=== PATIENT | female | born 1990 | race Hispanic/Latino ===

== ENCOUNTER 2017-07-08 17:33 | Emergency (ER) | payer OTHER, SELFPAY ==
[2017-07-08 18:56] LABS: Bilirubin Negative (Negative); Blood, Urine Trace (Negative); Clarity CLEAR (Clear); Glucose, Urine (Dipstick) Negative (Negative); Leukocyte Negative (Negative); Nitrite Negative (Negative); Pregnancy Test - Urine (BHCG) POSITIVE (Negative); Pregu Control Background? CLEAR/WHITE (CLR/WHITE); Pregu Control Bar Appear? YES (CONTROL BAR); Protein, Urine (Dipstick) Negative (Neg-Trace); Specific Gravity 1.033 (1.002-1.036); Specific Gravity, Urine 1.033 (1.002-1.036); Urobilinogen 0.2 mg/dL (0.2-1.0)
[2017-07-08 18:58] LABS: Bacteria/HPF None Seen HPF (None Seen); Hyaline Casts/LPF 0-3 HYALINE CAST LPF (0-3 Hyaline); Pathc Cast-AUWi Flag 0.29 (0-2.49); RBC/HPF 0-3 HPF (0-3); Squamous Epithelial 0-3 HPF (0-3); WBC/HPF 0-3 HPF (0-3)
[2017-07-08 19:46] LABS: #Basophils 0.1 thou/uL (0.0-0.2); #Eosinphils 0.1 thou/uL (0.0-0.7); #Lymphocytes 2.6 thou/uL (1.20-3.40); #Monocytes 0.6 thou/uL (0.11-0.59); #Neutrophils 6.7 thou/uL (1.40-6.50); %Basophils 0.5 % (0.0-1.0); %Eosinophils 0.9 % (0.0-10.0); %Lymphocytes 25.6 % (21.0-51.0); Hemoglobin 13.1 g/dL (12.0-16.0); Mean Corpuscular HGB CONC 35.3 g/dL (32.0-36.0); Mean Corpuscular Hemoglobin 31.6 pg (27.0-31.0); Mean Corpuscular Volume 89.6 fl (81.0-99.0); Mean Platelet Volume 7.5 fL (7.4-10.4); Platelet Count 264 thou/uL (130-400); RBC Distribution Width 11.7 % (11.5-14.5); Red Blood Cell (RBC) Count 4.15 mill/uL (4.20-5.40)
[2017-07-08 20:07] LABS: ALT (SGPT) 20 U/L (8-55); AST (SGOT) 15 U/L (5-34); Albumin 3.9 g/dL (3.5-5.0); Alkaline Phosphatase 62 U/L (40-150); Anion Gap 10 mmol/L (10-20); BUN (Urea Nitrogen) 11 mg/dL (7.0-18.7); Bilirubin, Total Less than 0.2 mg/dL (0.2-1.2); Calc. Creatinine Clearance 0 mL/min (70-130); Calcium 9.4 mg/dL (7.8-10.44); Carbon Dioxide 22 mmol/L (22-29); Chloride 106 mmol/L (98-107); Estimated GFR-MDRD Greater than 90; Globulin 3.7 g/dL (2.4-3.5); Glucose 107 mg/dL (70-105); Potassium 3.6 mmol/L (3.5-5.1); Protein, Total 7.6 g/dL (6.0-8.3); Sodium 134 mmol/L (136-145)
--- NOTE | 2017-07-08 22:58 | ULT ---
PELVIC ULTRASOUND: 07/08/17 Comparison study is not available. Multiple longitudinal and transverse images of the pelvis is obtained using a multihertz curvilinear transabdominal transducer. Real time, spectral waveform doppler analysis and color flow sonography is used to evaluate the pelvis. Images demonstrate a gestational sac and pole seen. Cardiac activity is confirmed measuring 168 beats per minute. There is a small area of hypoechogenicity along the left lateral aspect of the jameel alice compatible with an area of subchorionic hemorrhage. This area of hemorrhage measures approximatel y 10 x 3 mm. [place]-rump length measures 2.2 cm with an estimated gestational age of 8 weeks, 6 days. This gives an estimated date of delivery of 02/11/18. Both ovaries visualized with good blood flow. The right ovary measures 2.3 x 1.4 x 2.1 cm while the left measures 2.6 x 2.0 x 2.3 cm. No evidence of free pelvic fluid seen. IMPRESSION: Viable intrauterine . There does appear to be a small area of subchorionic hemorrhage. POS: [facility]
== END 2017-07-08 23:47 | disposition home or self-care (01) ==
LOC: ERS 17:33
DX: O20.0 Threatened abortion (principal); Z3A.08 8 weeks gestation of pregnancy
CPT/HCPCS: 36415; 76856; 80053; 81003; 81015; 81025; 84702; 85025; 86900; 86901; 93976

== ENCOUNTER 2017-10-04 12:38 | Emergency (ER) | payer OTHER ==
[2017-10-04] MEDS ORDERED: Adacel (T-DAP) 0.5 ML VIAL ONE (13:00)
[2017-10-04] MEDS ORDERED: Lidocaine 1% (PF) 30 ML VIAL ONE (13:07)
[2017-10-04] MEDS ORDERED: Bacitracin Zinc 1 Packet ONE (13:38)
== END 2017-10-04 13:43 | disposition home or self-care (01) ==
LOC: ERS 12:38
DX: S91.312A Laceration without foreign body, left foot, initial encounter (principal); W26.0XXA Contact with knife, initial encounter
CPT/HCPCS: 12001; 90471; 90715; J2001

== ENCOUNTER 2017-10-23 10:48 | Emergency (ER) | payer OTHER | END 2017-10-23 11:50 | disposition home or self-care (01) | LOC: ERS 10:48 | DX: O22.42 Hemorrhoids in pregnancy, second trimester (principal); Z3A.23 23 weeks gestation of pregnancy | CPT/HCPCS: 99283 ==

== ENCOUNTER 2018-02-12 02:54 | Inpatient (IN) | payer MEDICAID, OTHER, SELFPAY ==
[2018-02-12 03:25] VITALS: BMI 37.4
[2018-02-12 04:22] LABS: Hemoglobin 12.3 g/dL (12.0-16.0); Mean Corpuscular HGB CONC 34.7 g/dL (32.0-36.0); Mean Corpuscular Hemoglobin 29.1 pg (27.0-31.0); Mean Corpuscular Volume 83.7 fL (78.0-98.0); Mean Platelet Volume 8.8 fL (7.4-10.4); Platelet Count 216 thou/uL (130-400); RBC Distribution Width 15.5 % (11.5-14.5); Red Blood Cell (RBC) Count 4.22 mill/uL (4.20-5.40); White Blood Cell (WBC) Count 7.7 thou/uL (4.8-10.8)
[2018-02-12 04:51] LABS: HBSAg Index 0.22 S/CO (0-0.99); HIV (1/2) Antibody/Antigen Non-Reactive (NonReactive); HIV 1/2 INDEX 0.27 S/CO (<1.00); Hep B Surf Ag Non-Reactive S/CO (NonReactive)
[2018-02-12 04:57] LABS: Syphilis Antibody Nonreactive (Nonreactive); Syphilis Antibody Index 0.04 S/CO (<1.00 Non-Reactive)
[2018-02-12] MEDS ORDERED: Fentanyl 4 mcg/Bup 0.1% Cadd 100 ML ONE ×2 (05:08→13:19)
[2018-02-12] MEDS ORDERED: Lactated Ringer's 500 ML IV PRN (05:45)
[2018-02-12] MEDS ORDERED: Fentanyl 4 mcg/Bupivacaine 0.1% Cassette 100 ML EPIDURAL SCH (05:45)
[2018-02-12] MEDS ORDERED: ePHEDrine/0.9% NaCl/PF SYRINGE 50 mg/10 ml SLOW IVP PRN (05:45)
[2018-02-12] MEDS ORDERED: Naloxone HCl 0.4 mg/ml Vial IVP PRN ×2 (05:45)
[2018-02-12] MEDS ORDERED: Ondansetron PF 4 MG/2 ML Vial IVP PRN ×3 (05:45→19:14)
[2018-02-12] MEDS ORDERED: Eucerin (Mineral Oil/Petrolatum,White) 30 gm Jar TOP PRN (05:45)
[2018-02-12] MEDS ORDERED: Communication Order-Pharmacy FS SCH (05:45)
[2018-02-12] MEDS ORDERED: Acetaminophen 325 MG TAB PO PRN (05:45)
[2018-02-12] MEDS ORDERED: diphenhydrAMINE 50 MG/ML VIAL IVP PRN (05:45)
[2018-02-12] MEDS ORDERED: Promethazine HCl 25 MG/ML VIAL IM PRN ×2 (05:45→06:13)
[2018-02-12] MEDS ORDERED: Ibuprofen 800 MG TAB PO PRN (06:13)
[2018-02-12] MEDS ORDERED: Butorphanol Tartrate 1 MG/ML VIAL SLOW IVP PRN (06:13)
[2018-02-12] MEDS ORDERED: Lidocaine 1% (PF) 30 ML VIAL SC PRN (06:13)
[2018-02-12] MEDS ORDERED: Acetaminophen 500 MG TAB PO PRN (06:13)
[2018-02-12] MEDS ORDERED: Docusate 100 MG CAP PO PRN (06:13)
--- NOTE | 2018-02-12 08:52 | PDOC.FPROB ---
FMR OB H&P: HPI - History of Present Illness Chief Complaint: PROM Indentification: 27 year old at 39.6 wks History of Present Illness: 27 year old at 39.1 wks presents with contractions since 1:30 AM occurring q10 min. Patient states that upon arrival to L&D she SROM'd around 2: 45 AM. Clear fluid noted. She has had contractions q3-4 minutes since that time. Patient endorses good movement. Patient denies vaginal bleeding or vaginal discharge. Patient denies any complications in this . Primary Care Physician: Pedro FMR OB H&P: Current - Care : 3 Para: 2001 Gestational age: 39.6 wks Due date: 02/13/2018 - OB Labs Blood type: A RH: positive Antibody Screen: negative HIV: negative RPR: negative HepBsAg: negative Rubella: immune GBS: negative FMR OB H&P: History - Past Medical History PMH: None - OB History OB History: TOLAC x1 during last successful C/S x1 during first - LAST IRONER History LAST IRONER History: None - Surgical History Sx History: C/S x1 Left ACL repair - Social History Social History: Denies alcohol, tobacco, or drug use. FMR OB H&P: Medications - Current Home Medications: Medication Instructions Recorded Confirmed Type Vit,Calc76/Iron/Folic 1 tablet PO DAILY 02/12/18 02/12/18 History [Pnv 29-1 Tablet] Allergies/Adverse Reactions: Allergies Allergy/AdvReac Type Severity Reaction Status Date / Time No Known Allergies Allergy Verified 02/12/18 03:20 FMR OB H&P: ROS - Review of Systems General: denies: fever/chills, weight/appetite/sleep changes Eyes: denies: vision changes, double vision, scotomas ENT: denies: nasal congestion, rhinorrhea, sore throat Cardiovascular: denies: chest pain, edema Respiratory: denies: cough, congestion, shortness of breath Gastrointestinal: denies: nausea, vomiting, diarrhea Genitourinary (Female): reports: vaginal pain, contractions, vaginal pressure. denies: dysuria, vaginal discharge, vaginal bleeding Musculoskeletal: denies: pain, stiffness Neurologic: denies: numbness, syncope, seizures Integumentary: denies: itching, rash Hematologic/Lymphatic: denies: prolonged or excessive bleeding Psychological: denies: depression, anxiety FMR OB H&P: Vital Signs - Maternal Vital signs: Vital Signs - First Documented Temp Pulse Resp BP 98.1 F 83 18 141/91 H 02/12/18 03:18 02/12/18 03:18 02/12/18 03:18 02/12/18 03:18 - Heart Tones Baseline: 120 Variability: moderate Acceleration: present Deceleration: absent Category: category 1 [place] contractions every: q6min FMR OB H&P: Physical Exam - Physical Exam General: NAD, awake, alert and oriented HEENT: MMM, grossly normal vision, grossly normal hearing Heart: RRR General: no respiratory distress, good air movement Abdomen: soft, gravid, non-tender Musculoskeletal: pulses present, FROM in all four extremities Neurological: no tremor, no focal deficit Skin: no rash, good tugor Lymphatic: no unusual bruising or bleeding, no purpura Psychiatric: intact recent and remote memory, good judgement and insight, normal mood and affect - Pelvic Exam Vulva: normal hair distribution SVE: 6/80/-2 at 6AM Presentation: vertex FMR OB H&P: Results - Labs Lab results: Laboratory Results - last 24 hr 02/12/18 02/12/18 02/12/18 03:46 03:46 03:46 WBC 7.7 RBC 4.22 Hgb 12.3 Hct 35.3 L MCV 83.7 MCH 29.1 MCHC 34.7 RDW 15.5 H Plt Count 216 MPV 8.8 Syphilis IgG/IgM Ab Nonreactive Hep Bs Antigen Non-Reactive HIV 1&2 Antigen & Ab Non-Reactive Blood Type Antibody Screen 02/12/18 03:46 WBC RBC Hgb Hct MCV MCH MCHC RDW Plt Count MPV Syphilis IgG/IgM Ab Hep Bs Antigen HIV 1&2 Antigen & Ab Blood Type A POSITIVE Antibody Screen NEGATIVE FMR OB H&P: A/P - Problem List (1) Active labor at term Current Visit: Yes Status: Acute Code(s): [id number] - (2) Term Current Visit: Yes Status: Acute Code(s): Z34.80 - ENCOUNTER FOR SUPRVSN OF NORMAL , UNSP TRIMESTER (3) Declines (vaginal after ) trial Current Visit: Yes Status: Acute Code(s): O34.219 - MATERNAL CARE FOR UNSP TYPE SCAR FROM PREVIOUS DEL (4) Elevated BP without diagnosis of hypertension Current Visit: Yes Status: Acute Code(s): R03.0 - ELEVATED BLOOD-PRESSURE READING, W/O DIAGNOSIS OF HTN Disposition: 27 year old at 39.1 wks presents in labor 1. Term IUP in active labor - Cervical change 4/60/-2 --> 6/60/-2 several hours later - Category I strip - Desires TOLAC 2. Desires TOLAC - Risks and benefits discussed. Patient has had on prior TOLAC that was successful. - SROM at 2:45; will place IUPC to better monitor contraction pattern and strength 3. Elevated BP without diagnosis of cHTN or gHTN - 141/91; isolated elevated BP - Continue to monitor Dispo: Pt stable. Admit to L&D for expectant management. Discussion: Date/Time: 02/12/18 0850 This H&P was discussed with Dr. Suazo who agrees with the above documentation and plan. Signature: Zita Smith, DO PGY-2
[2018-02-12] MEDS ORDERED: NS w/ Oxytocin 10 units 500 ML IV SCH (10:15)
[2018-02-12] MEDS ORDERED: NS w/ Oxytocin 10 units 500 ML ONE (10:18)
[2018-02-12] MEDS: Lactated Ringer's 1,000 ML IV SCH ×2 (10:45→17:41)
[2018-02-12] MEDS ORDERED: Bupivacaine HCl 0.25%/Epi 0.0005/PF 10 ML VIAL FS ONE (11:11)
--- NOTE | 2018-02-12 13:06 | PDOC.LDPN ---
Labor & Delivery Progress Note - Subjective Subjective: comfortable - Objective Vital signs reviewed and normal: yes General: NAD, resting, breathing through contractions Uterine fundus: non tender SVE: 12:09 Dilation: 6 Effacement: 90% Station: -2 FHT: category 1, variability present [place] contractions every: q2-3 min IUPC placed: yes (2 hours prior, not adequate) - Assessment (1) Active labor at term Code(s): [id number] - Status: Acute (2) Term Code(s): Z34.80 - ENCOUNTER FOR SUPRVSN OF NORMAL , UNSP TRIMESTER Status: Acute (3) Declines (vaginal after ) trial Code(s): O34.219 - MATERNAL CARE FOR UNSP TYPE SCAR FROM PREVIOUS DEL Status: Acute (4) Elevated BP without diagnosis of hypertension Code(s): R03.0 - ELEVATED BLOOD-PRESSURE READING, W/O DIAGNOSIS OF HTN Status : Acute Plan: continue plan of care, labor augmentation, pitocin for augmentation ( Started at appx 10:30; at 8 units, not adequate MVU's) Addendum - Attending - Attending Attestation Date/Time: 02/16/18 [id number] I personally evaluated the patient and discussed the management with Dr. Smith I agree with the History, Examination, Assessment and Plan documented above with any addition or exceptions noted below.
[2018-02-12] MEDS: NS / Oxytocin 40 units/1000ml 1,000 ML IV PRN ×2 (17:40→18:34)
--- NOTE | 2018-02-12 18:11 | PDOC.OPDEL ---
OB Operative/Delivery Note Delivery Dr/Surgeon: Gerald Smith Pre-Delivery Diagnosis: active labor, ruptured membrane Procedure/Post Delivery Dx: spontaneous vaginal delivery Anesthesia: epidural - Findings A Sex: male - 1 min: 7 - 5 min: 9 - Additional Findings/Plan Estimated blood loss: QBL [id number]
[2018-02-12] MEDS ORDERED: diphenhydrAMINE 25 MG CAP PO PRN (19:14)
[2018-02-12] MEDS ORDERED: Milk Of Magnesia 30 ML UDCUP PO PRN (19:14)
[2018-02-12] MEDS ORDERED: NS / Oxytocin 40 units/1000ml 1,000 ML IV SCH (19:14)
[2018-02-12] MEDS ORDERED: Lanolin Ointment 7 GM TUBE TOP PRN (19:14)
[2018-02-12] MEDS ORDERED: Bisacodyl 10 MG SUPP PR PRN (19:14)
[2018-02-12] MEDS ORDERED: Preparation H Ointment 28 GM TUBE PR PRN (19:14)
[2018-02-12] MEDS ORDERED: Benzocaine/Menthol 20-0.5% 60 ML CAN TOP PRN (19:14)
[2018-02-12] MEDS: Docusate Calcium (SURFAK) 240 MG CAP PO SCH (20:58)
[2018-02-12] MEDS: Ibuprofen 800 MG TAB PO SCH (20:58)
[2018-02-12] MEDS ORDERED: Adacel (T-DAP) 0.5 ML SYRINGE IM ONE (21:00)
[2018-02-13] MEDS ORDERED: Sodium Chloride 0.9% 10 ML ONE (03:41)
[2018-02-13 05:51] LABS: Hemoglobin 8.7 g/dL (12.0-16.0); Mean Corpuscular HGB CONC 33.6 g/dL (32.0-36.0); Mean Corpuscular Hemoglobin 28.5 pg (27.0-31.0); Mean Corpuscular Volume 84.8 fL (78.0-98.0); Mean Platelet Volume 8.3 fL (7.4-10.4); Platelet Count 167 thou/uL (130-400); RBC Distribution Width 15.5 % (11.5-14.5); Red Blood Cell (RBC) Count 3.05 mill/uL (4.20-5.40); White Blood Cell (WBC) Count 9.6 thou/uL (4.8-10.8)
[2018-02-13] MEDS: Ibuprofen 800 MG TAB PO SCH ×3 (06:19→22:07)
[2018-02-13] MEDS: Milk Of Magnesia 30 ML UDCUP PO SCH (08:41)
[2018-02-13] MEDS: Docusate Calcium (SURFAK) 240 MG CAP PO SCH ×2 (08:41→22:07)
[2018-02-13] MEDS: Ferrous Sulfate 325 MG TAB PO SCH ×2 (08:41→16:51)
[2018-02-13] MEDS: Prenatal Vitamin 1 TAB PO SCH (08:41)
--- NOTE | 2018-02-13 08:52 | PRG ---
DATE OF SERVICE: 02/13/2018 SUBJECTIVE: The patient is day 1, status post a successful vaginal after section. This morning, she reports she is tolerating p.o., having good pain control and decreased lochia. OBJECTIVE: VITAL SIGNS: This morning, blood pressure is 105/56, temperature 98.1, pulse of 80, respiratory rate of 16. GENERAL: She appears to be in no acute distress. She is alert, oriented, cooperative, and pleasant to interact with. HEENT: Head is normocephalic, atraumatic. ABDOMEN: Fundus is firm at the umbilicus -1. EXTREMITIES: Nontender, nonedematous. LABORATORY DATA: hemoglobin is 8.7, hematocrit 25.9. ASSESSMENT AND PLAN: The patient is day 1, status post two vaginal after section. Anticipate discharge in the morning. Job ID: [id number]
[2018-02-13 20:57] VITALS: BP 106/53; TEMP 98.1
[2018-02-14] MEDS: Ibuprofen 800 MG TAB PO SCH (05:56)
[2018-02-14] MEDS: Ferrous Sulfate 325 MG TAB PO SCH (09:12)
[2018-02-14] MEDS: Docusate Calcium (SURFAK) 240 MG CAP PO SCH (09:13)
[2018-02-14] MEDS: Prenatal Vitamin 1 TAB PO SCH (09:13)
[2018-02-14] MEDS: Milk Of Magnesia 30 ML UDCUP PO SCH (09:13)
== END 2018-02-14 12:00 | disposition home or self-care (01) | DRG 768 ==
LOC: L&D/OP 02:54 → L&D 04:06 → 3SW 20:40
PROVIDERS: ADMIT Obstetrics & Gynecology; ATTEND Obstetrics & Gynecology
PROC: 0DQR0ZZ Repair Anal Sphincter, Open Approach (ICD-10-PCS; principal; 2018-02-12)
PROC: 10E0XZZ Delivery of Products of Conception, External Approach (ICD-10-PCS; 2018-02-12)
PROC: 10H07YZ Insertion of Other Device into Products of Conception, Via Natural or Artificial Opening (ICD-10-PCS; 2018-02-12)
PROC: 4A1H74Z Monitoring of Products of Conception, Cardiac Electrical Activity, Via Natural or Artificial Opening (ICD-10-PCS; 2018-02-12)
DX: O34.219 Maternal care for unspecified type scar from previous cesarean delivery (principal); Z37.0 Single live birth; O70.20 Third degree perineal laceration during delivery, unspecified; Z3A.39 39 weeks gestation of pregnancy; R03.0 Elevated blood-pressure reading, without diagnosis of hypertension; N85.8 Other specified noninflammatory disorders of uterus
CPT/HCPCS: 36415; 51702; 85027; 86762; 86780; 86850; 86900; 86901; 87340; 87389; 99285; J2001; J2405